=== PATIENT | male | born 1995 | race Caucasian/White ===

== ENCOUNTER 2021-03-11 16:07 | Emergency (ER) | payer BC, OTHER ==
[2021-03-11] MEDS ORDERED: HYDROmorphone 1 MG/ML Syringe IVPUSH ONE (16:25)
[2021-03-11] MEDS ORDERED: Sodium Chloride 0.9% 10 ML Syringe FLUSH PRN (16:25)
[2021-03-11] MEDS ORDERED: Ondansetron 4 MG/2 ML SDV IVPUSH ONE (16:25)
--- NOTE | 2021-03-11 16:36 | EDM.PDOC ---
ED HPI GENERAL MEDICAL PROBLEM - General Chief Complaint: Upper Extremity Injury/Pain Stated Complaint: R SHOULDER INJURY Time Seen by Provider: 03/11/21 16:21 Source of Information: Reports: Patient, RN Notes Reviewed History Limitations: Reports: No Limitations - History of Present Illness INITIAL COMMENTS - FREE TEXT/NARRATIVE: Patient is a 25-year-old male who presents to the ER for evaluation of a right shoulder injury. Notes that he was at a branding, and was on a horse, when he had to bail off the horse quickly, and he fell to the ground onto his right shoulder. Notes that he has pain in his right shoulder kind of all the way around the shoulder there is no specific area that hurts worse than the rest. There are no visible deformities apparent Course - Orders/Labs/Meds Orders: Active Orders 24 hr Category Date Time Status Peripheral IV Care [RC] . DIRECTED Care 03/11/21 16:25 Ordered Shoulder Comp Rt [CR] Stat Exams 03/11/21 16:19 Ordered CBC WITH MANUAL DIFF [HEME] Stat Lab 03/11/21 16:25 Ordered COMPREHENSIVE METABOLIC PN,CMP [CHEM] Stat Lab 03/11/21 16:25 Ordered INR,PT,PROTHROMBIN TIME [COAG] Stat Lab 03/11/21 16:25 Ordered PTT,PARTIAL THROMBOPLSTIN TIME [COAG] Stat Lab 03/11/21 16:25 Ordered HYDROmorphone [Dilaudid] Med 03/11/21 16:25 Once 1 mg IVPUSH ONETIME ONE Ondansetron [Zofran] Med 03/11/21 16:25 Once 4 mg IVPUSH ONETIME ONE Sodium Chloride 0.9% [Saline Flush] Med 03/11/21 16:25 Ordered 10 ml FLUSH ASDIRECTED PRN Peripheral IV Insertion Adult [OM.PC] Routine Oth 03/11/21 16:25 Ordered Medication Orders Hydromorphone HCl (Hydromorphone 1 Mg/Ml Syringe) 1 mg IVPUSH ONETIME ONE Stop: 03/11/21 16:26 Ondansetron HCl (Ondansetron 4 Mg/2 Ml Sdv) 4 mg IVPUSH ONETIME ONE Stop: 03/11/21 16:26 Sodium Chloride (Sodium Chloride 0.9% 10 Ml Syringe) 10 ml FLUSH ASDIRECTED PRN PRN Reason: Keep Vein Open Meds: Medications Generic Name Dose Route Start Last Admin Trade Name Freq PRN Reason Stop Dose Admin Hydromorphone HCl 1 mg 03/11/21 16:25 Hydromorphone 1 Mg/Ml Syringe IVPUSH 03/11/21 16:26 ONETIME ONE Ondansetron HCl 4 mg 03/11/21 16:25 Ondansetron 4 Mg/2 Ml Sdv IVPUSH 03/11/21 16:26 ONETIME ONE Sodium Chloride 10 ml 03/11/21 16:25 Sodium Chloride 0.9% 10 Ml Syringe FLUSH ASDIRECTED PRN Keep Vein Open Departure - Discharge Information Referrals: PCP,None [Primary Care Provider] - Forms: ED Department Discharge - My Orders Last 24 Hours: My Active Orders 03/11/21 16:19 Shoulder Comp Rt [CR] Stat 03/11/21 16:25 Peripheral IV Care [RC] . DIRECTED CBC WITH MANUAL DIFF [HEME] Stat COMPREHENSIVE METABOLIC PN,CMP [CHEM] Stat INR,PT,PROTHROMBIN TIME [COAG] Stat PTT,PARTIAL THROMBOPLSTIN TIME [COAG] Stat HYDROmorphone [Dilaudid] 1 mg IVPUSH ONETIME ONE Ondansetron [Zofran] 4 mg IVPUSH ONETIME ONE Sodium Chloride 0.9% [Saline Flush] 10 ml FLUSH ASDIRECTED PRN Peripheral IV Insertion Adult [OM.PC] Routine - Assessment/Plan Last 24 Hours: My Active Orders 03/11/21 16:19 Shoulder Comp Rt [CR] Stat 03/11/21 16:25 Peripheral IV Care [RC] . DIRECTED CBC WITH MANUAL DIFF [HEME] Stat COMPREHENSIVE METABOLIC PN,CMP [CHEM] Stat INR,PT,PROTHROMBIN TIME [COAG] Stat PTT,PARTIAL THROMBOPLSTIN TIME [COAG] Stat HYDROmorphone [Dilaudid] 1 mg IVPUSH ONETIME ONE Ondansetron [Zofran] 4 mg IVPUSH ONETIME ONE Sodium Chloride 0.9% [Saline Flush] 10 ml FLUSH ASDIRECTED PRN Peripheral IV Insertion Adult [OM.PC] Routine
[2021-03-11] MEDS ORDERED: Lactated Ringers 1,000 ML IV SCH (16:45)
--- NOTE | 2021-03-11 16:52 | CR ---
Right shoulder: Single AP view of the right shoulder. Comparison: No prior right shoulder exam is available. Anterior dislocation is seen. Difficult to exclude a fracture off the inferior scapula on this exam. Impression: 1. Dislocation. Difficult to exclude fracture as noted. Diagnostic code #3
[2021-03-11] MEDS ORDERED: HYDROmorphone 0.5 MG/0.5 ML Syringe IVPUSH ONE (16:55)
--- NOTE | 2021-03-11 17:02 | PCM.PREANE ---
Preanesthetic Assessment - Procedure Proposed Procedure: Closed Reduction of Right Shoulder - Anesthesia/Transfusion/Family Hx Anesthesia History: No Prior Anesthesia Family History of Anesthesia Reaction: No Transfusion History: No Prior Transfusion(s) Intubation History: Unknown - Review of Systems General: No Symptoms Pulmonary: No Symptoms (ETOH: FREQUENTLY/CHEW TOBACCO: 2 HOURS) Cardiovascular: No Symptoms Gastrointestinal: No Symptoms (gerd) Neurological: No Symptoms (LOWER BACK PAIN CHRONIC) Other: Reports: None - Physical Assessment NPO Status Date: 03/11/21 NPO Status Time: 11:00 Vital Signs: Last Vital Signs Temp 98.1 F 03/11/21 16:36 Pulse 58 L 03/11/21 16:36 Resp 20 03/11/21 16:36 BP 124/73 03/11/21 16:36 Pulse Ox 96 03/11/21 16:36 Height: 1.78 m Weight: 92.986 kg ASA Class: 1E Mental Status: Alert & Oriented x3 Airway Class: Mallampati = 2 Dentition: Reports: Normal Dentition, Caries Thyro-Mental Finger Breadths: 3 Mouth Opening Finger Breadths: 3 ROM/Head Extension: Full Lungs: Clear to Auscultation, Normal Respiratory Effort Cardiovascular: Regular Rate, Regular Rhythm, No Murmurs - Lab Values: Laboratory Last Values WBC 13.63 K/mm3 (4.23-9.07) H 03/11/21 16:25 RBC 4.97 M/mm3 (4.63-6.08) 03/11/21 16:25 Hgb 14.2 gm/dl (13.7-17.5) 03/11/21 16:25 Hct 44.3 % (40.1-51.0) 03/11/21 16:25 MCV 89.1 fl (79.0-92.2) 03/11/21 16:25 MCH 28.6 pg (25.7-32.2) 03/11/21 16:25 MCHC 32.1 g/dl (32.2-35.5) L 03/11/21 16:25 RDW Std Deviation 41.0 fL (35.1-43.9) 03/11/21 16:25 Plt Count 327 K/mm3 (163-337) 03/11/21 16:25 MPV 10.5 fl (9.4-12.3) 03/11/21 16:25 PT 11.4 SECONDS (9.7-12.0) 03/11/21 16:25 INR 1.07 03/11/21 16:25 APTT 22.7 SECONDS (21.7-31.4) 03/11/21 16:25 Sodium 139 mEq/L (136-145) 03/11/21 16:25 Potassium 3.7 mEq/L (3.5-5.1) 03/11/21 16:25 Chloride 101 mEq/L (98-107) 03/11/21 16:25 Carbon Dioxide 27 mEq/L (21-32) 03/11/21 16:25 Anion Gap 14.7 (5-15) 03/11/21 16:25 BUN 15 mg/dL (7-18) 03/11/21 16:25 Creatinine 1.5 mg/dL (0.7-1.3) H 03/11/21 16:25 Est Cr Clr Drug Dosing 77.06 mL/min 03/11/21 16:25 Estimated GFR (MDRD) 57 mL/min (>60) 03/11/21 16:25 BUN/Creatinine Ratio 10.0 (14-18) L 03/11/21 16:25 Glucose 137 mg/dL (70-99) H 03/11/21 16:25 Calcium 8.6 mg/dL (8.5-10.1) 03/11/21 16:25 Total Bilirubin 0.5 mg/dL (0.2-1.0) 03/11/21 16:25 AST 22 U/L (15-37) 03/11/21 16:25 ALT 37 U/L (16-63) 03/11/21 16:25 Alkaline Phosphatase 51 U/L (46-116) 03/11/21 16:25 Total Protein 7.6 g/dl (6.4-8.2) 03/11/21 16:25 Albumin 4.2 g/dl (3.4-5.0) 03/11/21 16:25 Globulin 3.4 gm/dL 03/11/21 16:25 Albumin/Globulin Ratio 1.2 (1-2) 03/11/21 16:25 - Allergies Allergies/Adverse Reactions: Allergies Allergy/AdvReac Type Severity Reaction Status Date / Time No Known Allergies Allergy Verified 03/11/21 16:38 - Anesthesia Plan Pre-Op Medication Ordered: None - Acknowledgements Anesthesia Type Planned: MAC Pt an Appropriate Candidate for the Planned Anesthesia: Yes Alternatives and Risks of Anesthesia Discussed w Pt/Guardian: Yes Pt/Guardian Understands and Agrees with Anesthesia Plan: Yes PreAnesthesia Questionnaire - HOME MEDS Home Medications: Home Meds . [No Known Home Meds] 03/11/21 [History] - CURRENT (IN HOUSE) MEDS Current Meds: Current Medications Lactated Ringer's (Ringers, Lactated) 1,000 mls @ 75 mls/hr IV ASDIRECTED REAL Last Admin: 03/11/21 16:46 Dose: 75 mls/hr Documented by: Sodium Chloride (Sodium Chloride 0.9% 10 Ml Syringe) 10 ml FLUSH ASDIRECTED PRN PRN Reason: Keep Vein Open Last Admin: 03/11/21 16:25 Dose: 10 ml Documented by: Discontinued Medications Hydromorphone HCl (Hydromorphone 1 Mg/Ml Syringe) 1 mg IVPUSH ONETIME ONE Stop: 03/11/21 16:26 Last Admin: 03/11/21 16:31 Dose: 1 mg Documented by: Hydromorphone HCl (Hydromorphone 0.5 Mg/0.5 Ml Syringe) 0.5 mg IVPUSH ONETIME ONE Stop: 03/11/21 16:56 Ondansetron HCl (Ondansetron 4 Mg/2 Ml Sdv) 4 mg IVPUSH ONETIME ONE Stop: 03/11/21 16:26 Last Admin: 03/11/21 16:29 Dose: 4 mg Documented by:
[2021-03-11] MEDS ORDERED: fentaNYL 100 MCG/2 ML SDV ONE (17:05)
[2021-03-11] MEDS ORDERED: Propofol 200 MG/20 ML SDV ONE ×2 (17:05→17:07)
[2021-03-11] MEDS ORDERED: Lidocaine 1% 4 ML ONE (17:05)
--- NOTE | 2021-03-11 17:54 | PCM48HPAN ---
Post Anesthesia Note - EVALUATION WITHIN 48HRS OF ANESTHETIC Vital Signs in Normal Range: Yes Patient Participated in Evaluation: Yes Respiratory Function Stable: Yes Airway Patent: Yes Cardiovascular Function Stable: Yes Hydration Status Stable: Yes Pain Control Satisfactory: Yes Nausea and Vomiting Control Satisfactory: Yes Mental Status Recovered: Yes Vital Signs: Last Vital Signs Temp 37.1 C 03/11/21 17:05 Pulse 66 03/11/21 17:05 Resp 19 03/11/21 17:05 BP 121/91 H 03/11/21 17:05 Pulse Ox 100 03/11/21 17:05
--- NOTE | 2021-03-11 17:57 | EDM.PDOC ---
ED HPI GENERAL MEDICAL PROBLEM - General Chief Complaint: Upper Extremity Injury/Pain Stated Complaint: R SHOULDER INJURY Time Seen by Provider: 03/11/21 16:21 Source of Information: Reports: Patient, Family History Limitations: Reports: No Limitations - History of Present Illness INITIAL COMMENTS - FREE TEXT/NARRATIVE: Patient was helped by helping his friends do some branding and he fell off his horse landing with outstretched hand injuring his right shoulder. He had at 11:00 a sandwich and drink a few beers prior to coming in. Denies any head injury spine or neck injury mostly complained of right shoulder pain. No numbness or tingling. No obvious elbow or wrist pain or deformity. He denies any chest pain shortness of breath or breathing problems. No nausea vomiting or abdominal pain no pelvis pain lower extremities and left upper extremity otherwise are uninjured. He is very uncomfortable having a lot of pain. He otherwise was feeling well today and otherwise has been healthy with no major medical conditions Treatments GRANITE SETTER: Reports: Other (see below) Other Treatments GRANITE SETTER: none Right Shoulder Pain Score (Numeric/FACES): 7 - Related Data Allergies Allergy/AdvReac Type Severity Reaction Status Date / Time No Known Allergies Allergy Verified 03/11/21 16:38 Home Meds: Home Meds Naproxen 500 mg PO BIDAC PRN #20 tablet 03/11/21 [Rx] Past Medical History Musculoskeletal History: Reports: Fracture Neurological History: Reports: Concussion - Infectious Disease History Infectious Disease History: Reports: Chicken Pox Social & Family History - Tobacco Use Tobacco Use Status *Q: Heavy Tobacco User Years of Tobacco use: 13 Packs/Tins Daily: 0.5 - Caffeine Use Caffeine Use: Reports: Coffee, Soda - Alcohol Use Days Per Week of Alcohol Use: 7 Number of Drinks Per Day: 2 Total Drinks Per Week: 14 - Recreational Drug Use Recreational Drug Use: No Review of Systems - Review of Systems Review Of Systems: See Below Constitutional: Denies: Chills, Diaphoresis Ears: Denies: Dizziness Mouth/Throat: Reports: No Symptoms Respiratory: Denies: Shortness of Breath, Cough Cardiovascular: Denies: Chest Pain, Lightheadedness GI/Abdominal: Denies: Abdominal Pain, Diarrhea, Nausea, Vomiting Musculoskeletal: Reports: Shoulder Pain, Arm Pain, Joint Pain, Muscle Pain. Denies: Neck Pain, Back Pain, Hand Pain, Leg Pain, Foot Pain Skin: Reports: No Symptoms Neurological: Denies: Confusion, Dizziness, Headache, Numbness, Paresthesia, Syncope, Tingling, Difficulty Walking Psychiatric: Reports: Anxiety (Pain) ED EXAM, GENERAL - Physical Exam Exam: See Below Exam Limited By: No Limitations General Appearance: Alert, WD/WN, Anxious, Moderate Distress Eye Exam: Bilateral Eye: PERRL Throat/Mouth: Normal Inspection, Normal Oropharynx Head: Atraumatic, Normocephalic Neck: Normal Inspection, Non-Tender, Full Range of Motion. No: Tender Lateral, Tender Midline Respiratory/Chest: No Respiratory Distress, Lungs Clear, Normal Breath Sounds, Chest Non-Tender. No: Rhonchi Cardiovascular: Normal Peripheral Pulses, Regular Rate, Rhythm, No Edema Peripheral Pulses: 2+: Radial (L), Radial (R) GI/Abdominal: Normal Bowel Sounds, Soft, Non-Tender, No Organomegaly Back Exam: Normal Inspection Extremities: Arm Pain, Limited Range of Motion. No: Normal Range of Motion, Liat's Sign, Leg Pain, Pallor Neurological: Alert, Oriented, CN II-XII Intact, Normal Cognition, Normal Gait, No Motor/Sensory Deficits Psychiatric: Normal Affect Skin Exam: Warm ED TRAUMA EXTREMITY PROCEDURES - Joint Reduction Right Shoulder Pre-Procedure NV Status: Normal Post-Procedure NV Status: Normal Technique: Traction/Counter Traction Number of Attempts: 2 Post-Reduction Imaging: Completely Reduced Joint Reduction Complications: No Progress/Comments: Assisted with the advanced practice provider, was able to get the shoulder relocated, post procedure the circulation pulses are normal sensation over the deltoid are normal skin color is normal radial and ulnar pulses are normal. X- rays show good position without any Hill-Sachs deformity or fracture. Course - Vital Signs Text/Narrative:: Seen examined and evaluated as a trauma alert. Based on mechanism falling off a horse. Main injury is a right upper extremity pain and shoulder dislocation. Other trauma exam was normal. X-ray showed the dislocation, post reduction films show no obvious Hill-Sachs deformity or fracture, recheck examination the patient is otherwise feeling much better no other signs of trauma anywhere else. Patient recovered from the procedural sedation without difficulty. Will be discharged home. Recommend sling ice shoulder immobilizer rest Naprosyn follow- up with orthopedist and return precautions given Last Recorded V/S: Last Vital Signs Temp 98.8 F 03/11/21 17:05 Pulse 66 03/11/21 17:05 Resp 19 03/11/21 17:05 BP 121/91 H 03/11/21 17:05 Pulse Ox 100 03/11/21 17:05 - Orders/Labs/Meds Orders: Active Orders 24 hr Category Date Time Status Notify Provider [RC] ASDIRECTED Care 03/11/21 17:48 Active Oxygen Therapy [RC] ASDIRECTED Care 03/11/21 17:48 Active Peripheral IV Care [RC] . DIRECTED Care 03/11/21 16:25 Active Pulse Oximetry [RC] ASDIRECTED Care 03/11/21 17:48 Active Vital Signs [RC] Q15M Care 03/11/21 17:48 Active Shoulder Comp Rt [CR] Stat Exams 03/11/21 17:24 Taken Lactated Ringers [Ringers, Lactated] 1,000 ml Med 03/11/21 16:45 Active IV ASDIRECTED Sodium Chloride 0.9% [Saline Flush] Med 03/11/21 16:25 Active 10 ml FLUSH ASDIRECTED PRN DME for Discharge [COMM] Stat Oth 03/11/21 17:37 Ordered Peripheral IV Insertion Adult [OM.PC] Routine Oth 03/11/21 16:25 Ordered Medication Orders Lactated Ringer's (Ringers, Lactated) 1,000 mls @ 75 mls/hr IV ASDIRECTED REAL Last Admin: 03/11/21 16:46 Dose: 75 mls/hr Documented by: TALYA Sodium Chloride (Sodium Chloride 0.9% 10 Ml Syringe) 10 ml FLUSH ASDIRECTED PRN PRN Reason: Keep Vein Open Last Admin: 03/11/21 16:25 Dose: 10 ml Documented by: TALYA Labs: Laboratory Tests 03/11/21 03/11/21 03/11/21 Range/Units 16:25 16:25 16:25 WBC 13.63 H (4.23-9.07) K/mm3 RBC 4.97 (4.63-6.08) M/mm3 Hgb 14.2 (13.7-17.5) gm/dl Hct 44.3 (40.1-51.0) % MCV 89.1 (79.0-92.2) fl MCH 28.6 (25.7-32.2) pg MCHC 32.1 L (32.2-35.5) g/dl RDW Std Deviation 41.0 (35.1-43.9) fL Plt Count 327 (163-337) K/mm3 MPV 10.5 (9.4-12.3) fl Neutrophils % (Manual) 73 H (40-60) % Band Neutrophils % 1 (0-10) % Lymphocytes % (Manual) 18 L (20-40) % Atypical Lymphs % 2 % Monocytes % (Manual) 5 (2-10) % Eosinophils % (Manual) 1 (0.8-7.0) % Basophils % (Manual) 0 L (0.2-1.2) Platelet Estimate Adequate RBC Morph Comment Normal PT 11.4 (9.7-12.0) SECONDS INR 1.07 APTT 22.7 (21.7-31.4) SECONDS Sodium 139 (136-145) mEq/L Potassium 3.7 (3.5-5.1) mEq/L Chloride 101 (98-107) mEq/L Carbon Dioxide 27 (21-32) mEq/L Anion Gap 14.7 (5-15) BUN 15 (7-18) mg/dL Creatinine 1.5 H (0.7-1.3) mg/dL Est Cr Clr Drug Dosing 77.06 mL/min Estimated GFR (MDRD) 57 (>60) mL/min BUN/Creatinine Ratio 10.0 L (14-18) Glucose 137 H (70-99) mg/dL Calcium 8.6 (8.5-10.1) mg/dL Total Bilirubin 0.5 (0.2-1.0) mg/dL AST 22 (15-37) U/L ALT 37 (16-63) U/L Alkaline Phosphatase 51 (46-116) U/L Total Protein 7.6 (6.4-8.2) g/dl Albumin 4.2 (3.4-5.0) g/dl Globulin 3.4 gm/dL Albumin/Globulin Ratio 1.2 (1-2) Meds: Medications Generic Name Dose Route Start Last Admin Trade Name Freq PRN Reason Stop Dose Admin Lactated Ringer's 1,000 mls @ 75 mls/hr 03/11/21 16:45 03/11/21 16:46 Ringers, Lactated IV 75 mls/hr ASDIRECTED REAL Administration Sodium Chloride 10 ml 03/11/21 16:25 03/11/21 16:25 Sodium Chloride 0.9% 10 Ml Syringe FLUSH 10 ml ASDIRECTED PRN Administration Keep Vein Open Discontinued Medications Generic Name Dose Route Start Last Admin Trade Name Riley PRN Reason Stop Dose Admin Fentanyl Confirm 03/11/21 17:05 Fentanyl 100 Mcg/2 Ml Sdv Administered 03/11/21 17:06 Dose 100 mcg .ROUTE .STK-MED ONE Hydromorphone HCl 1 mg 03/11/21 16:25 03/11/21 16:31 Hydromorphone 1 Mg/Ml Syringe IVPUSH 03/11/21 16:26 1 mg ONETIME ONE Administration Hydromorphone HCl 0.5 mg 03/11/21 16:55 03/11/21 17:00 Hydromorphone 0.5 Mg/0.5 Ml Syringe IVPUSH 03/11/21 16:56 0.5 mg ONETIME ONE Administration Lidocaine HCl Confirm 03/11/21 17:05 Xylocaine-Mpf 1% Administered 03/11/21 17:06 Dose 4 mls @ as directed .ROUTE .STK-MED ONE Ondansetron HCl 4 mg 03/11/21 16:25 03/11/21 16:29 Ondansetron 4 Mg/2 Ml Sdv IVPUSH 03/11/21 16:26 4 mg ONETIME ONE Administration Propofol Confirm 03/11/21 17:05 Propofol 200 Mg/20 Ml Sdv Administered 03/11/21 17:06 Dose 200 mg .ROUTE .STK-MED ONE Propofol Confirm 03/11/21 17:07 Propofol 200 Mg/20 Ml Sdv Administered 03/11/21 17:08 Dose 200 mg .ROUTE .STK-MED ONE Departure - Departure Time of Disposition: 18:15 Disposition: Home, Self-Care 01 Condition: Good Clinical Impression: Shoulder dislocation Qualifiers: Encounter type: initial encounter Laterality: right Qualified Code(s): S43.004A - Unspecified dislocation of right shoulder joint, initial encounter - Discharge Information Instructions: Shoulder Pain, [id number], How To Use a Sling, [id number], Shoulder Dislocation, [id number] Referrals: PCP,None [Primary Care Provider] - Nikunj Pryor MD [Physician] - 1 Week Forms: ED Department Discharge Additional Instructions: Ice, elevate sling. Avoid moving your elbow away from your body. Avoid excessive bending or straining with your right upper extremity. Recommend calling the orthopedic office on Sunday for repeat evaluation this coming week. Naprosyn for pain, return to emergency department with any increasing pain, numbness, tingling, other injuries such as headaches neck pain or other injuries from the fall off the horse. Sepsis Event Note (ED) - Evaluation Sepsis Screening Result: No Definite Risk - Focused Exam Vital Signs: Vital Signs Temp Pulse Resp BP Pulse Ox 03/11/21 17:05 98.8 F 66 19 121/91 H 100 03/11/21 16:36 98.1 F 58 L 20 124/73 96 - My Orders Last 24 Hours: My Active Orders 03/11/21 16:45 Lactated Ringers [Ringers, Lactated] 1,000 ml IV ASDIRECTED 03/11/21 17:24 Shoulder Comp Rt [CR] Stat 03/11/21 17:37 DME for Discharge [COMM] Stat - Assessment/Plan Last 24 Hours: My Active Orders 03/11/21 16:45 Lactated Ringers [Ringers, Lactated] 1,000 ml IV ASDIRECTED 03/11/21 17:24 Shoulder Comp Rt [CR] Stat 03/11/21 17:37 DME for Discharge [COMM] Stat
--- NOTE | 2021-03-11 18:10 | CR ---
Right shoulder: 3 views the right shoulder were obtained. Comparison: Prior right shoulder study performed earlier in the same day (4:35 PM). Previous dislocation has been reduced. No fracture is appreciated on the post reduction film. No additional abnormality is seen. Impression: 1. Dislocation has been reduced. 2. No fracture is seen. Diagnostic code #1
== END 2021-03-11 18:35 | disposition home or self-care (01) ==
LOC: JD.ED 16:07
DX: S43.004A Unspecified dislocation of right shoulder joint, initial encounter (principal); Z72.0 Tobacco use; V80.010A Animal-rider injured by fall from or being thrown from horse in noncollision accident, initial encounter
CPT/HCPCS: 23650; 36415; 73020; 73030; 80053; 85007; 85027; 85610; 85730; 96374; 96375; 99283; J1170; J2405; J2704; J3010; J7120; 01620; 99284